=== PATIENT | female | born 1965 | race Caucasian/White ===

== ENCOUNTER 2017-07-05 14:20 | Inpatient (IN) | payer BC, MEDICAID, OTHER ==
[~2017-07-05] VITALS: Ht 167.6 cm; Wt 68.5 kg
[2017-07-05] MEDS ORDERED: MVI-12 10ML IV STA (14:44)
[2017-07-05] MEDS ORDERED: MVI-12 10ML IV ONE (14:48)
[2017-07-05] MEDS ORDERED: PANTOPRAZOLE 40 MG VIAL ONE (14:48)
[2017-07-05] MEDS ORDERED: ONDANSETRON HCL/PF 4 MG/2 ML VIAL ONE (14:48)
[2017-07-05] MEDS ORDERED: ONDANSETRON HCL/PF 4 MG/2 ML VIAL IVP ONE (15:00)
[2017-07-05] MEDS ORDERED: PANTOPRAZOLE 40 MG VIAL IV ONE (15:00)
[2017-07-05] MEDS ORDERED: IV NS 0.9% 1,000 ML BAG IV ONE ×2 (15:00→16:00)
--- NOTE | 2017-07-05 15:00 | NUR ---
PT CAME IN WITH C/O N/V, HEADACHE STATING THAT "I HAD ALCOHOL LAST NIGHT/EARLY THIS AM TO SLEEP". VSS. SEEN BY MD FOR EVAL. SAFETY AND COMFORT MEASURES PROVIDED. WILL MONITOR.
[2017-07-05 15:02] LABS: BASOPHILS % (AUTO) 0.4 % (0.0-2.0); EOSINOPHILS # (AUTO) 0.2 /CMM (0.0-0.7); EOSINOPHILS % (AUTO) 2.4 % (0.0-6.0); HEMATOCRIT 43 % (33-45); HEMOGLOBIN 14.7 g/dL (11.5-14.8); LYMPHOCYTES # (AUTO) 1.9 /CMM (0.8-4.8); LYMPHOCYTES % (AUTO) 24.9 % (20.0-44.0); MEAN CORPUSCULAR HEMOGLOBIN 33 PG (26.0-33.0); MEAN CORPUSCULAR HGB CONC 34 g/dl (31.0-36.0); MEAN CORPUSCULAR VOLUME 97 fL (82-100); MONOCYTES # (AUTO) 0.5 /CMM (0.1-1.30); MONOCYTES % (AUTO) 6.3 % (2.0-12.0); NEUTROPHILS # (AUTO) 4.8 /CMM (1.8-8.9); PLATELET COUNT (AUTO) 249 /CMM (150-450); RDW COEFFICIENT OF VARIATION 13.2 (11.5-15.0); RED BLOOD CELL COUNT(AUTO) 4.43 MIL/uL (4.0-5.2); WHITE BLOOD COUNT (AUTO) 7.4 K/uL (4.3-11.0)
[2017-07-05 15:05] LABS: APPEARANCE,URINE Clear (CLEAR); BILIRUBIN,URINE Negative (NEGATIVE); BLOOD, URINE Negative Ery/uL (NEGATIVE); COLOR,URINE Yellow (YELLOW); KETONES,URINE Negative (NEGATIVE); LEUKOCYTE ESTERASE ,URINE Negative (NEGATIVE); NITRITE, URINE Negative (NEGATIVE); PROTEIN,URINE Negative (NEGATIVE); UGLUCOSE Negative (NEGATIVE); UROBILINOGEN,URINE 0.2 EU/dL (0.2)
[2017-07-05 15:12] LABS: CALCIUM, SERUM 8.9 mg/dL (8.5-10.1); CREATININE 0.6 mg/dL (0.6-1.3); POTASSIUM 3.5 mmol/L (3.5-5.1)
--- NOTE | 2017-07-05 15:15 | NUR ---
IV ACCESS STARTED. BLOOD DRAWN FOR LABS. MEDICATED ORDERED.
[2017-07-05 15:18] LABS: ALBUMIN 3.7 g/dL (3.4-5.0); BILIRUBIN,DIRECT 0.1 mg/dL (0.0-0.2); BILIRUBIN,TOTAL 0.3 mg/dL (0.2-1.0); TOTAL PROTEIN, SERUM 7.8 g/dL (6.4-8.2)
[2017-07-05] MEDS ORDERED: KETOROLAC TROMETHAMINE INJ 30 MG/ML VIAL ONE (15:24)
[2017-07-05] MEDS ORDERED: MORPHINE SULFATE INJ 4 MG/ML DISP.SYRIN ONE (15:49)
[2017-07-05] MEDS ORDERED: MORPHINE SULFATE INJ 2 MG/ML DISP.SYRIN IV ONE (16:00)
[2017-07-05] MEDS ORDERED: IV NS 0.9% 1,000 ML IV PRN (17:49)
[2017-07-05] MEDS ORDERED: FLUT16SP16 NS (17:59)
[2017-07-05] MEDS ORDERED: KETO10DR3 EACHEYE (17:59)
[2017-07-05] MEDS ORDERED: MONT10TA22 PO (17:59)
[2017-07-05] MEDS ORDERED: OMEP40CA37 PO (17:59)
[2017-07-05] MEDS ORDERED: ONDANSETRON HCL/PF 4 MG/2 ML VIAL IVP PRN ×2 (18:00→18:45)
[2017-07-05] MEDS ORDERED: LORAZEPAM INJ 2 MG/ML VIAL IV PRN ×2 (18:00→18:45)
[2017-07-05] MEDS ORDERED: ENOXAPARIN SODIUM 40 MG/0.4 ML DISP.SYRIN SQ SCH (18:00)
[2017-07-05] MEDS ORDERED: MORPHINE SULFATE INJ 2 MG/ML DISP.SYRIN IV PRN ×2 (18:00→18:45)
[2017-07-05] MEDS ORDERED: MAG HYDROX/AL HYDROX/SIMETH 30 ML UDC PO PRN ×2 (18:00→18:45)
[2017-07-05] MEDS ORDERED: HYDROCODONE/APAP 5/325MG 1 EACH TABLET PO PRN ×2 (18:00→18:45)
[2017-07-05] MEDS ORDERED: PIPERACILLIN /TAZOBACTAM 4.5 G in IV NS 0.9% 50 ML IV SCH (18:00)
[2017-07-05] MEDS ORDERED: Z GUARD REMEDY 2 OZ OINT TP PRN ×2 (18:00→18:45)
[2017-07-05] MEDS ORDERED: MAGNESIUM HYDROXIDE 30 ML UDC PO PRN ×2 (18:00→18:45)
[2017-07-05] MEDS ORDERED: ACETAMINOPHEN 325 MG TABLET PO PRN ×2 (18:00→18:45)
[2017-07-05] MEDS ORDERED: ZOLPIDEM TARTRATE 5 MG TABLET PO PRN ×2 (18:00→18:45)
--- NOTE | 2017-07-05 18:27 | NUR ---
BED 208
--- NOTE | 2017-07-05 18:42 | NUR ---
REPORT GIVEN TO JOE/RN ON BEHALF OF PRIMARY NURSE MIGUEL.
--- NOTE | 2017-07-05 19:50 | NUR ---
MS RN NOTES PATIENT ON BED A/O X4,NEW ADMISSION,ORDER BY DR BENAVIDES ADMIT TELE.NURSING PROGRAM SUPPORT ASSISTANT LEONA MADE AWARE AND SHE SAID 'ITS A MISTAKE'. DR BENAVIDES WAS PAGE AND SPOKE TO HER AND SHE SAID "I ORDERED TELE "
--- NOTE | 2017-07-05 20:10 | NUR ---
MS RN NOTES PATIENT TRANSFERRED TO TELE VIA WHEELCHAIR ROOM 315 BED2.REPORT GIVEN TO JENNA
[2017-07-05 20:15] VITALS: BP 108/70
--- NOTE | 2017-07-05 20:15 | NUR ---
SKIN CARE TECHNICIAN ADMITTING NOTES: ADMITTED A 51 YO FEMALE PATIENT WHO WAS SEEN IN THE ER DUE TO NAUSEA AND VOMITING, WHERE SHE WAS THEN DIAGNOSED WITH ACUTE PANCREATITIS. PATIENT WAS BROUGHT TO TELE FLOOR VIA WHEELCHAIR, AOX4, ON ROOM AIR, BREATHING EVEN AND UNLABORED. APPEARS CALM AND IN NO DISTRESS, DENIES ABDOMINAL PAIN, BUT STATES SHE DOES FEEL NAUSEOUS. PIV OVER LFA G20, INTACT AND PATENT TO FLUSH. PROVIDED FOR COMFORT AND SAFETY. BED IN LOWEST AND LOCKED POSITION, SIDERAILS UP X 2, CALL LIGHT WITHIN REACH. WILL CONT TO MONITOR.
[2017-07-05] MEDS ORDERED: ACET-2117 PO (20:35)
[2017-07-05] MEDS ORDERED: IBUP-1955 PO (20:35)
[2017-07-05] MEDS: IV NS 0.9% 1,000 ML IV PRN (21:02)
[2017-07-05] MEDS ORDERED: VANCOMYCIN 1 GM in IV D5W 250 ML IV ONE (22:00)
--- NOTE | 2017-07-05 22:09 | NUR ---
RN NOTES: SPOKE TO DR STOLL, PATIENT WILL BE NPO, BUT ICE CHIPS IS OK. ALSO ORDERED FOR AM LABS. ORDERS NOTED AND CARRIED OUT.
[2017-07-05] MEDS: ENOXAPARIN SODIUM 40 MG/0.4 ML DISP.SYRIN SQ SCH (22:25)
--- NOTE | 2017-07-05 22:30 | NUR ---
RN NOTES: SPOKE TO DEANNE, PHARMACIST FOUR ROLL CALENDER OPERATOR, RE PATIENT'S IV VANCOMYCIN AND ZOSYN. SHE SAID BOTH MEDS ARE ALREADY VERIFIED, BUT SINCE OMNICELL IS NOT ALLOWING FOR BOTH MEDS TO BE PULLED OUT (STATES MED NOT STOCKED), THESE MEDS CAN BE OVERRIDDEN BY CHARGE NURSE.
[2017-07-05] MEDS ORDERED: VANCOMYCIN 1 GM VIAL ONE (22:41)
[2017-07-05 23:18] VITALS: BP 108/70
[2017-07-06] VITALS (9 sets, daily range): BP systolic 109–131; BP diastolic 69–88
[2017-07-06] MEDS ORDERED: PIPERACILLIN /TAZOBACTAM 3.375 G in IV D5W 50 ML IV SCH ×2
[2017-07-06] MEDS ORDERED: PIPERACILLIN /TAZOBACTAM 3.375 G VIAL IV ONE ×2 (00:23→05:20)
[2017-07-06] MEDS: PIPERACILLIN /TAZOBACTAM 3.375 G in IV D5W 50 ML IV SCH ×4 (00:25→18:18)
[2017-07-06] MEDS: IV NS 0.9% 1,000 ML IV PRN ×4 (04:04→22:18)
--- NOTE | 2017-07-06 06:51 | NUR ---
MOTORCYCLE TECHNICIAN CLOSING NOTES: PATIENT IN BED, AOX4, ON ROOM AIR, BREATHING EVEN AND UNLABORED. APPEARS CALM AND IN NO DISTRESS. DENIES ABDL PAIN, BUT ONLY STATES THAT SHE FEELS MIDLY NAUSEATED. ON TELE MONITORING, SINUS RHYTHM AT RATE OF 70S. PIV OVER LFA G20 INTACT AND PATENT, INFUSING WELL WITH NS RUNNING AT 200 ML/HR. MAINTAINED ON NPO. DUE MEDS GIVEN. PROVIDED FOR COMFORT AND SAFETY. BED IN LOWEST AND LOCKED POSITION, SIDERAILS UP X2, CALL LIGHT WITHIN REACH. WILL ENDORSE TO AM RN FOR ADAM.
[2017-07-06 06:54] LABS: BASOPHILS % (AUTO) 0.3 % (0.0-2.0); EOSINOPHILS # (AUTO) 0.1 /CMM (0.0-0.7); EOSINOPHILS % (AUTO) 1.4 % (0.0-6.0); HEMATOCRIT 37 % (33-45); HEMOGLOBIN 12.9 g/dL (11.5-14.8); LYMPHOCYTES # (AUTO) 1.8 /CMM (0.8-4.8); LYMPHOCYTES % (AUTO) 23.7 % (20.0-44.0); MEAN CORPUSCULAR HEMOGLOBIN 34 PG (26.0-33.0); MEAN CORPUSCULAR HGB CONC 35 g/dl (31.0-36.0); MEAN CORPUSCULAR VOLUME 98 fL (82-100); MONOCYTES # (AUTO) 0.5 /CMM (0.1-1.30); MONOCYTES % (AUTO) 6.9 % (2.0-12.0); NEUTROPHILS # (AUTO) 5.1 /CMM (1.8-8.9); NEUTROPHILS % (AUTO) 67.7 % (43.0-81.0); PLATELET COUNT (AUTO) 210 /CMM (150-450); RDW COEFFICIENT OF VARIATION 13.8 (11.5-15.0); RED BLOOD CELL COUNT(AUTO) 3.81 MIL/uL (4.0-5.2); WHITE BLOOD COUNT (AUTO) 7.6 K/uL (4.3-11.0)
--- NOTE | 2017-07-06 07:00 | NUR ---
RN NOTES: PATIENT RESTING IN BED. NONLABORED BREATHING ON ROOM AIR. NO SIGNS OF DISTRESS. PATIENT AOX4. DENIES PAIN. IV ON LEFT FOREARM PATENT AND INTACT. BED IN LOWEST LOCKED POSITION. CALL LIGHT WITHIN REACH. WILL PATIENT SR WITH HR OF 70S
--- NOTE | 2017-07-06 07:00 | NUR ---
RN NOTES: PATIENT RESTING IN BED. NONLABORED BREATHING ON ROOM AIR. NO SIGNS OF DISTRESS. PATIENT AOX4. DENIES PAIN. IV ON LEFT FOREARM PATENT AND INTACT. BED IN LOWEST LOCKED POSITION. CALL LIGHT WITHIN REACH. WILL CONTINUE TO MONITOR
[2017-07-06 07:23] LABS: CALCIUM, SERUM 7.5 mg/dL (8.5-10.1); CREATININE 0.6 mg/dL (0.6-1.3); MAGNESIUM 1.8 mg/dL (1.8-2.4); POTASSIUM 3.7 mmol/L (3.5-5.1)
--- NOTE | 2017-07-06 07:46 | NUR ---
TELE/RN NOTES PATIENT IN BED IN STABLE CONDITION. A/O X 2. NO SIGNS OF ACUTE DISTRESS. NO COMPLAIN OF PAIN OR DISCOMFORT. ON TELE MONITOR NOTED WITH A-FLUTTER WITH PVC. ALL NEEDS ATTENDED TO. CALL LIGHT WITHIN REACH. WILL CONTINUE TO MONITOR TO ENSURE SAFETY. Addendum: 07/06/17 at 0954 by TEDDY SZYMANSKI RN DISREGARD THIS DOCUMENTATION, INTENDED FOR ANOTHER PATIENT.
--- NOTE | 2017-07-06 11:17 | NUR ---
Social service consult requested by Dr. Braga for ETOH Dependence. Pt. is a 51 year old female who was admitted to [facility] for Pancreatitis. SW met with pt. bedside. Pt's friend was sitting in a chair bedside. Pt. gave SW permission to speak with her while her friend is bedside. Pt. resides with her brother Brendan at [address] [place] [address], [id number] [address]. Pt's brother lives with her part-time only per pt's friend. Pt's brother Brendan Bennett is her emergency contact . Pt. states she only drinks a glass of wine per day and denied having an alcohol problem. SW aksed pt. if she has been in any alcohol treatment program in the past and pt. stated "no". However, pt's friend requested for inpatient and outpatient alcohol referral programs. Pt. does not have a sponsor and has not been to an AA meeting in the past. Pt. is currently unemployed. Pt. denies suicidal/homicidal ideations and visual/auditory hallucinations at this time. Pt. denies any psychiatric diagnosis besides having anxiety. Pt. does not take any medications for anxiety. AMINA gave pt. list of alcohol referrals to [facility] , [facility] and list of other alcohol referrals in [facility] and [facility]. No other social service needs are required at this time. SW is available, if needed. [facility] Collier has been updated with the aforementioned information.
[2017-07-06] MEDS: ENOXAPARIN SODIUM 40 MG/0.4 ML DISP.SYRIN SQ SCH (19:29)
--- NOTE | 2017-07-06 19:40 | NUR ---
RN NOTES: PATIENT RESTING IN BED. NONLABORED BREATHING NOTED ON ROOM AIR. NO SIGNS OF DISTRESS NOTED. NO SEIZURES DURING SHIFT. PATIENT STILL DENIES NAUSEA, VOMITTING, AND ABDOMINAL PAIN. PATIENT TOLERATED CLEAR LIQUID DINNER DIET WELL. NO COUGHING NOTED DURING EATING, NO SIGNS OF ASPIRATION. IV SITE ON LEFT ARM PATENT AND INTACT. PATIENT ON TELE MONITOR WITH SR WITH HEART RATE IN 70S. BED IN LOWEST LOCKED POSITION. CALL LIGHT WITHIN REACH. LOVENOX ADMINISTERED, CHECKED WITH IDANIA FROM PHARMACY REGARDING ADMINISTRATION TIME AND FREQUNCY. ENDORSED TO NEXT SHIFT
--- NOTE | 2017-07-06 19:45 | NUR ---
RN OPENING NOTES RECEIVED REPORT FROM MELVIN RNKYE. FOUND Pt AWAKE, RESTING IN BED. NO S/S OF ACUTE DISTRESS OR SOB NOTED. Pt IS A/OX4, VERBAL, ABLE TO MAKE NEEDS KNOWN. IV ACCESS ON LFA #20G, IVF NS @200ML/HR. TELE READING SR. SAFETY MEASURES IN PLACE. BED LOW, LOCKED, HOB ELEVATED, SIDE RAILS UP, CALL LIGHT AND BEDSIDE TABLE WITHIN REACH. WILL CONTINUE TO MONITOR Pt THROUGHOUT THE NIGHT FOR SAFETY.
[2017-07-06] MEDS ORDERED: PANTOPRAZOLE 40 MG VIAL IV SCH (21:00)
[2017-07-06] MEDS: FAMOTIDINE (20 MG) 20 MG TABLET PO SCH (21:51)
[2017-07-07] VITALS: BP 125/72
[2017-07-07] MEDS: IV NS 0.9% 1,000 ML IV PRN ×2 (03:52→08:32)
[2017-07-07 04:00] VITALS: BP 129/77
--- NOTE | 2017-07-07 06:28 | NUR ---
RN CLOSING NOTES NO SIGNIFICANT CHANGES IN Pt's CONDITION. Pt REMAINS STABLE AT THIS TIME. NO S/S OF ACUTE DISTRESS OR SEVERE SOB NOTED DURING THE NIGHT. TELE READING SB 56 - SR 70s. ALL NEEDS MET AND ATTENDED TO. SAFETY MEASURES IN PLACE. WILL ENDORSE TO DAYSHIFT RN FOR Pt's ADAM.
[2017-07-07 06:58] VITALS: BP 121/75
--- NOTE | 2017-07-07 07:20 | NUR ---
RN NOTES: PATIENT RESTING IN BED. PATIENT AOX4. DENIES ABDOMINAL PAIN, DENIES NAUSEA AND DENIES VOMITING. IV LINE PATENT AND INTACT ON LEFT FOREARM. BED IN LOWEST LOCKED POSITION. CALL LIGHT WITHIN REACH. WILL CONTINUE TO MONITOR. PATIENT SINUS RHYTHM WITH HEART RATE IN 60S
[2017-07-07 07:26] LABS: CREATININE 0.6 mg/dL (0.6-1.3); POTASSIUM 3.3 mmol/L (3.5-5.1)
[2017-07-07 07:31] LABS: ALBUMIN 2.9 g/dL (3.4-5.0); BILIRUBIN,DIRECT 0.2 mg/dL (0.0-0.2); BILIRUBIN,TOTAL 0.9 mg/dL (0.2-1.0); MAGNESIUM 1.8 mg/dL (1.8-2.4); TOTAL PROTEIN, SERUM 6.2 g/dL (6.4-8.2)
[2017-07-07 07:42] LABS: BASOPHILS % (AUTO) 0.4 % (0.0-2.0); EOSINOPHILS # (AUTO) 0.2 /CMM (0.0-0.7); EOSINOPHILS % (AUTO) 3.2 % (0.0-6.0); HEMATOCRIT 34 % (33-45); MEAN CORPUSCULAR HEMOGLOBIN 34 PG (26.0-33.0); MEAN CORPUSCULAR HGB CONC 35 g/dl (31.0-36.0); MEAN CORPUSCULAR VOLUME 97 fL (82-100); MONOCYTES # (AUTO) 0.5 /CMM (0.1-1.30); MONOCYTES % (AUTO) 9.1 % (2.0-12.0); NEUTROPHILS % (AUTO) 52.3 % (43.0-81.0); PLATELET COUNT (AUTO) 184 /CMM (150-450); RDW COEFFICIENT OF VARIATION 13.7 (11.5-15.0); RED BLOOD CELL COUNT(AUTO) 3.52 MIL/uL (4.0-5.2); WHITE BLOOD COUNT (AUTO) 5.8 K/uL (4.3-11.0)
[2017-07-07 08:00] VITALS: BP 129/80
[2017-07-07] MEDS: FAMOTIDINE (20 MG) 20 MG TABLET PO SCH (08:31)
--- NOTE | 2017-07-07 09:19 | NUR ---
RN NOTES: DR LYMAN ORDERED TO ADVANCE PATIENT'S DIET TO REGULAR
[2017-07-07] MEDS ORDERED: POTASSIUM CHLORIDE 20 MEQ TAB.PRT.SR PO SCH (10:30)
--- NOTE | 2017-07-07 15:48 | NUR ---
RN NOTES: PATIENT DISCHARGED HOME PER MD ORDERS. PATIENT STABLE. NONLABORED BREATHING NOETD ON ROOM AIR, NO COUGHING. NO NAUSEA NO VOMITTING, NO ABDOMINAL PAIN NOTED. PATIENT AMBULATORY STEADY. NO WEAKNESS NOTED. IV LINE REMOVED. PATIENT REFUSED VACCINES, BENEFITS AND RISKS EXPLAINED TO PATIENT. SKIN PICTURE TAKEN AND PLACED IN CHART. VALUABLES GIVEN TO PATIENT. PATIENT LEFT WITH BROTHER PATIENT EDUCATED ON MEDICATIONS,DR RECOMMENDATIONS, AND LABS. PATIENT VERBALIZED UNDERSTANDING WELL VERBALIZED UNDERSTANDING ON EXISTCARE
== END 2017-07-07 15:50 | disposition home or self-care (01) | DRG 282 ==
LOC: ER 14:23 → MEDSG2 19:04 → TELE 21:47 → MED 07-07 09:35
PROVIDERS: ADMIT Internal Medicine; ATTEND Internal Medicine
DX: K85.20 Alcohol induced acute pancreatitis without necrosis or infection (principal); E87.2 Acidosis; K76.0 Fatty (change of) liver, not elsewhere classified; K70.10 Alcoholic hepatitis without ascites; F32.9 Major depressive disorder, single episode, unspecified; E78.5 Hyperlipidemia, unspecified; R74.0 Nonspecific elevation of levels of transaminase and lactic acid dehydrogenase [LDH]; F41.9 Anxiety disorder, unspecified; K21.9 Gastro-esophageal reflux disease without esophagitis; K29.00 Acute gastritis without bleeding; K57.30 Diverticulosis of large intestine without perforation or abscess without bleeding; K58.0 Irritable bowel syndrome with diarrhea; F10.288 Alcohol dependence with other alcohol-induced disorder; Y90.9 Presence of alcohol in blood, level not specified
CPT/HCPCS: 36415; 71045-TC; 80048-TC; 80061-TC; 80074; 80076-TC; 81000-TC; 83605-TC; 83690-TC; 83735-TC; 84100-TC; 85025-TC; 87081-TC; A4216; A4606; C9113; J1650; J1885; J2270; J2405; J2543; J3370; J7030; J7060; Z7610

== ENCOUNTER 2021-05-19 16:54 | Emergency (ER) | payer OTHER ==
[~2021-05-19] VITALS: Ht 167.6 cm; Wt 72.6 kg
[~2021-05-19 16:54] MED LIST: FLUT16SP16 NS; KETO10DR3 EACHEYE; MONT10TA22 PO; OMEP40CA21 PO; [UNRECOGNIZED DRUG - CODE] PO
[2021-05-19 17:32] VITALS: BP 136/78
[2021-05-19] MEDS ORDERED: CHLO25CA22 PO (18:00)
--- NOTE | 2021-05-19 18:15 | NUR ---
Patient discharged to home in stable condition. Written and verbal after care instructions given. Patient verbalizes understanding of instruction.
== END 2021-05-19 18:17 | disposition home or self-care (01) ==
LOC: ER 17:06
DX: F10.239 Alcohol dependence with withdrawal, unspecified (principal)